=== PATIENT | female | born 1965 | race Caucasian/White ===

== ENCOUNTER 2021-08-15 04:44 | Emergency (ER) | payer SELFPAY ==
--- NOTE | 2021-08-15 05:33 | Event Note ---
ED Screening Note Date of service: 08/15/21 Time: 05:31 ED Screening Note: Patient is a 56-year-old -[place] female with a history of chronic diverticulitis who presents to the ED with acute onset persistent severe right lower quadrant abdominal pain that radiates to the right flank with nausea for the last 8 hours. Patient also complains of urinary frequency and urgency. Patient states that the pain started when she was sitting down on the couch watching TV and that the pain has been persistent and worse especially in the last 4 hours. Patient denies vomiting, fever, chills, diarrhea, dysuria, vaginal bleeding, vaginal discharge, chest pain or shortness of breath, traumatic injury or heavy lifting. This initial assessment/diagnostic orders/clinical plan/treatment(s) is/are subject to change based on patients health status, clinical progression and re- assessment by fellow clinical providers in the ED. Further treatment and workup at subsequent clinical providers discretion. Patient/guardian urged not to elope from the ED as their condition may be serious if not clinically assessed and managed. Initial orders include: CBC, CMP, UA, lipase, CT abdomen pelvis with contrast
[2021-08-15 05:59] LABS: Basophils % (Auto) 0.4 % (0.0-1.8); Eosinophils % (Auto) 0.5 % (0.0-4.3); Hematocrit 40.5 % (30.3-42.9); Hemoglobin 13.7 gm/dl (10.1-14.3); Lymphocytes # (Auto) 2.3 K/mm3 (1.2-5.4); Mean Corpuscular HGB Conc 34 % (30-34); Mean Corpuscular Volume 85 fl (79-97); Monocytes # (Auto) 0.6 K/mm3 (0.0-0.8); Monocytes % (Auto) 6.5 % (0.0-7.3); Platelet Count 287 K/mm3 (140-440); Red Cell Distribution Width 14.3 % (13.2-15.2)
[2021-08-15 06:10] LABS: Bacteria,Urine 1+ /HPF (Negative); Bilirubin,Urine NEG (Negative); Blood,Urine MOD (Negative); Color,Urine Yellow (Yellow); Mucus,Urine FEW /HPF; Urobilinogen,Urine < 2.0 mg/dL (<2.0); WBC,Urine > 182.0 /HPF (0.0-6.0)
[2021-08-15 06:13] LABS: Alanine Aminotransferase 20 units/L (7-56); Albumin 4.2 g/dL (3.9-5); Blood Urea Nitrogen 10 mg/dL (7-17); Calcium 9.3 mg/dL (8.4-10.2); Hemolysis Index 6
[2021-08-15] MEDS ORDERED: MORPHINE 4 MG/1 ML INJ IM ONE (06:14)
[2021-08-15 06:15] LABS: BUN/Creatinine Ratio 17
--- NOTE | 2021-08-15 06:17 | Emergency Department Report ---
ED Abdominal Pain HPI - General Stated Complaint: RT SIDE & LOWER BACK PAIN; FREQUENT URINATION Time Seen by Provider: 08/15/21 06:14 - History of Present Illness Initial Comments: Patient presents with right flank pain and right lower abdominal pain associate with dysuria and frequency. She has not had hematuria. There is no history of recent travel or trauma. There is no cough or congestion. She is had no vomiting or diarrhea. She believes that she has had similar symptoms like this before. However, she states that she was not sure if it was on the right or left side. Previously, she had been told that she had diverticular disease and was treated with antibiotics. Again, she does not remember if those symptoms are right-sided or left-sided. She has had no history of recent vomiting. She has had no cough or congestion. She has had no vaginal discharge. - Related Data Previous Rx's Medication Instructions Recorded Last Taken Type HYDROcodone/APAP 5-325 [[place] 1 each PO Q6HR PRN #10 tablet 08/15/21 Unknown Rx 5/325] cephALEXin [Keflex] 500 mg PO Q8HR #20 cap 08/15/21 Unknown Rx Allergies Allergy/AdvReac Type Severity Reaction Status Date / Time No Known Allergies Allergy Unverified 08/15/21 06:26 ED Review of Systems ROS: Stated complaint: RT SIDE & LOWER BACK PAIN; FREQUENT URINATION Other details as noted in HPI Comment: All other systems reviewed and negative Constitutional: fever (Subjective) ENT: denies: ear pain Respiratory: denies: cough Cardiovascular: denies: chest pain Endocrine: denies: unexplained weight loss Gastrointestinal: as per HPI. denies: nausea Genitourinary: as per HPI. denies: hematuria Musculoskeletal: as per HPI, back pain ( right flank) Skin: denies: rash Neurological: denies: headache Hematological/Lymphatic: denies: easy bruising ED Past Medical Hx - Past Medical History Previous Medical History?: Yes Additional medical history: diverticular disease - Family History Family history: no significant - Medications Home Medications: Home Medications Medication Instructions Recorded Confirmed Last Taken Type HYDROcodone/APAP 5-325 [[place] 1 each PO Q6HR PRN #10 tablet 08/15/21 Unknown Rx 5/325] cephALEXin [Keflex] 500 mg PO Q8HR #20 cap 08/15/21 Unknown Rx ED Physical Exam - General Limitations: No Limitations, Other ( pulse ox was noted and normal. She is not hypoxic.) General appearance: alert, in distress ( Uncomfortable) - Head Head exam: Present: atraumatic, normocephalic - Eye Eye exam: Present: normal appearance, EOMI. Absent: scleral icterus - ENT ENT exam: Present: normal exam, normal orophraynx - Neck Neck exam: Present: normal inspection. Absent: meningismus - Respiratory Respiratory exam: Present: normal lung sounds bilaterally. Absent: respiratory distress - Cardiovascular Cardiovascular Exam: Present: regular rate, normal rhythm - GI/Abdominal GI/Abdominal exam: Present: soft. Absent: distended, tenderness - Extremities Exam Extremities exam: Present: normal capillary refill - Back Exam Back exam: Present: CVA tenderness (R). Absent: CVA tenderness (L) - Neurological Exam Neurological exam: Present: alert, oriented X3. Absent: motor sensory deficit - Psychiatric Psychiatric exam: Present: normal affect, normal mood - Skin Skin exam: Present: warm, dry ED Course Vital Signs 08/15/21 07:15 Temperature 98.4 F Pulse Rate 74 Respiratory 16 Rate Blood Pressure 132/84 [Left] O2 Sat by Pulse 100 Oximetry - Reevaluation(s) Reevaluation #1: 08/15/21 07:56 labs are noted. Patient was treated and discharged. ED Medical Decision Making - Lab Data Result diagrams: 08/15/21 05:42 08/15/21 05:42 - Medical Decision Making Patient presented with right flank pain. She had to had pain radiating to the right abdomen. There is no hematuria. Pain does not seem to be colicky. I clinically do not believe this represents ureteral colic. She does have evidence of pyelonephritis. There is no abdominal tenderness to suggest appendicitis. Certainly, I do not believe this represents diverticulitis at this time. Pain is right-sided, not left-sided. Patient does not have any pelvic pain. She is not reporting any type of symptoms suggestive of ovarian torsion. At 56, I am not concerned for . She was treated symptomatically. She does not appear to be septic or toxic. Critical Care Time: No Critical care attestation.: If time is entered above; I have spent that time in minutes in the direct care of this critically ill patient, excluding procedure time. ED Disposition Clinical Impression: Pyelonephritis Disposition: HOME / SELF CARE / HOMELESS Is pt being admited?: No Does the pt Need Aspirin: No Condition: Stable Instructions: Pyelonephritis, Adult Additional Instructions: Drink water. Do not drive on pain medications. Return for problems. Take all of the antibiotics. See your doctor for recheck. Prescriptions: cephALEXin [Keflex] 500 mg PO Q8HR #20 cap HYDROcodone/APAP 5-325 [[place] 5/325] 1 each PO Q6HR PRN #10 tablet PRN Reason: Pain Referrals: PRIMARY CAREMD [Referring] - 3-5 Days ANIKET MCCLAIN MD [Staff Physician] - 3-5 Days
[2021-08-15] MEDS ORDERED: ONDANSETRON 4 MG/2 ML INJ IV ONE (07:00)
[2021-08-15] MEDS ORDERED: cephALEXin 500 MG CAP PO ONE (07:00)
[2021-08-15] MEDS ORDERED: MORPHINE 4 MG/1 ML INJ IV ONE (07:00)
[2021-08-15 07:19] VITALS: BP 132/84
== END 2021-08-15 07:15 | disposition home or self-care (01) ==
LOC: ED 04:44
DX: N12 Tubulo-interstitial nephritis, not specified as acute or chronic (principal); Z79.899 Other long term (current) drug therapy
CPT/HCPCS: 36415; 80053; 81001; 83690; 85025; 96372; 96374; 99283; J2270; J2405